=== PATIENT | female | born 1990 ===

== ENCOUNTER 2020-11-29 15:53 | Inpatient (IN) ==
[2020-11-29] MEDS ORDERED: ONDANSETRON 4 MG/2 ML VIAL IV PRN (16:41)
[2020-11-29] MEDS ORDERED: MEPERIDINE 50 MG/1 ML VIAL IV PRN (16:41)
[2020-11-29] MEDS ORDERED: BUTORPHANOL 2 MG/ML VIAL IV PRN (16:41)
[2020-11-29] MEDS ORDERED: FAMOTIDINE 20 MG/2 ML VIAL IV SCH (17:00)
[2020-11-29] MEDS ORDERED: OXYTOCIN/LR 20 UNIT/1,000 ML BAG IV SCH (17:00)
[2020-11-29] MEDS ORDERED: LACTATED RINGERS 1,000 ML IV SCH ×2 (17:00→18:30)
[2020-11-29 17:01] LABS: Basophils % 0.3 % (0.0-0.8); Eosinophils % 0.6 % (0.00-10.9); Hematocrit 34.2 VOL% (35.7-47.0); Hemoglobin 10.5 GM/DL (12.0-16.0); Immature Granulocytes % 1.4 %; Lymphocytes # 1.6 10*3/uL (1.4-4.0); Lymphocytes % 21.9 % (21.3-54.2); Mean Corpuscular HGB Conc 30.7 GM/DL (32-36); Mean Platelet Volume 8.8 FL (9.6-12.0); Monocytes % 6.6 % (1.7-12.7); NRBC # 0.02 10*3/uL; Neutrophils % 69.2 % (38.7-73.9); Platelet Count 389 T/CUMM (130-400); Red Blood Count 4.22 MC/CUMM (3.8-5.5); Red Cell Distribution Width 17.1 % (9.3-17.3); White Blood Count 7.2 T/CUMM (4-12)
[2020-11-29] MEDS ORDERED: CITRIC ACID/SODIUM CITRATE 30 ML UDCUP ONE (18:01)
[2020-11-29] MEDS ORDERED: CITRIC ACID/SODIUM CITRATE 30 ML UDCUP PO ONE (18:02)
[2020-11-29] MEDS ORDERED: LACTATED RINGERS 1,000 ML IV ONE (18:02)
[2020-11-29] MEDS ORDERED: ePHEDrine 50 MG/ML VIAL IV PRN (18:02)
[2020-11-29] MEDS ORDERED: NALOXONE 0.4 MG/ML VIAL IV PRN (18:03)
[2020-11-29] MEDS ORDERED: diphenhydrAMINE 50 MG/1 ML VIAL IV PRN ×2 (18:03)
[2020-11-29] MEDS ORDERED: hydrOXYzine HCL 25 MG/1 ML VIAL IM PRN (18:03)
[2020-11-29] MEDS ORDERED: PROMETHAZINE 25 MG/1 ML VIAL IM ONE (18:03)
[2020-11-29] MEDS ORDERED: fentaNYL 2 MCG/ROPIV 0.2% EPID 100 ML EPIDURAL SCH (18:30)
[2020-11-29 19:47] LABS: Bilirubin,Urine Negative (Negative); Blood, Urine Negative (Negative); Glucose,Urine (UA) Negative (Negative); Ketones,Urine Negative (Negative); Mucus,Urine Occasional /LPF (Occasional); Nitrite,Urine Negative (Negative); Protein,Urine Negative; RBC,Urine <1 /HPF (0-4); Squamous Epithelial Cell,Urine Occasional /HPF (0-10); Urine Appearance CLEAR (Clear); Urine Color Yellow (Yellow); Urine Specific Gravity 1.023 (1.001-1.035)
[2020-11-30] MEDS ORDERED: miSOPROStoL 200 MCG TABLET ONE (00:10)
[2020-11-30] MEDS ORDERED: METHYLERGONOVINE 0.2 MG/1 ML AMP ONE (00:10)
[2020-11-30] MEDS ORDERED: CARBOPROST TROMETHAMINE 250 MCG/ML AMP IM ONE (00:10)
[2020-11-30] MEDS ORDERED: TRANEXAMIC ACID 1,000 MG/10 ML VIAL ONE (00:10)
[2020-11-30] MEDS ORDERED: LIDOCAINE 1% 50 ML VIAL ONE (00:11)
[2020-11-30] MEDS ORDERED: SODIUM CHLORIDE 0.9% 0 ML IV ONE (00:11)
[2020-11-30] MEDS ORDERED: ePHEDrine 50 MG/ML VIAL IV ONE (01:36)
[2020-11-30 01:47] LABS: Cord Venous Blood HCO3 20.5 MMOL/L; Cord Venous Blood PCO2 41.5 MMHG; Cord Venous Blood PO2 27.6
[2020-11-30 01:54] LABS: Hematocrit 29.8 VOL% (35.7-47.0); Hemoglobin 9.1 GM/DL (12.0-16.0)
[2020-11-30] MEDS ORDERED: SODIUM CHLORIDE 0.9% 1,000 ML IV ONE (03:39)
[2020-11-30] MEDS ORDERED: BISACODYL 10 MG SUPP RECTAL PRN (04:39)
[2020-11-30] MEDS ORDERED: DIPH/TET/ACEL PERT BOOSTER VACCINE 0.5 ML VIAL IM ONE (04:39)
[2020-11-30] MEDS ORDERED: BENZOCAINE 20%/MENTHOL 0.5% SPRAY 56 GM CAN TOP PRN (04:39)
[2020-11-30] MEDS ORDERED: HYDROCORTISONE 2.5% RECTAL CREAM 30 GM TUBE TOP PRN (04:39)
[2020-11-30] MEDS ORDERED: ACETAMINOPHEN 325 MG TABLET PO PRN (04:39)
[2020-11-30] MEDS ORDERED: LANOLIN 50% CREAM 0.3 OZ TUBE TOP PRN (04:39)
[2020-11-30] MEDS ORDERED: RHO(D) IMMUNE GLOBULIN 300 MCG SYRINGE IM ONE (04:39)
[2020-11-30] MEDS ORDERED: OXYTOCIN/LR 20 UNIT/1,000 ML BAG IV ONE (04:39)
[2020-11-30] MEDS ORDERED: oxyCODONE/ACETAMINOPHEN 5-325 MG TABLET PO PRN (04:39)
[2020-11-30] MEDS ORDERED: WITCH HAZEL PADS 100/JAR TOP PRN (04:39)
[2020-11-30] MEDS ORDERED: MEASLES/MUMPS/RUBELLA VACCINE 0.5 ML VIAL SUBCUT ONE (04:39)
[2020-11-30] MEDS: oxyCODONE/ACETAMINOPHEN 5-325 MG TABLET PO PRN ×3 (04:44→15:51)
[2020-11-30] MEDS: IBUPROFEN 800 MG TABLET PO PRN ×2 (04:46→20:47)
[2020-11-30] MEDS: BUTALBITAL/ACETAMIN/CAFFEINE 50-325-40 MG TABLET PO SCH ×3 (06:08→22:27)
[2020-11-30 07:49] LABS: Basophils % 0.1 % (0.0-0.8); Hematocrit 27.4 VOL% (35.7-47.0); Hemoglobin 8.6 GM/DL (12.0-16.0); Immature Granulocytes % 0.5 %; Immature Granulocytes Absolute 0.08 #; Lymphocytes # 1.2 10*3/uL (1.4-4.0); Lymphocytes % 7.8 % (21.3-54.2); Mean Corpuscular HGB Conc 31.4 GM/DL (32-36); Mean Corpuscular Volume 84.6 FL (87-102); Mean Platelet Volume 9.3 FL (9.6-12.0); Neutrophils % 85.6 % (38.7-73.9); Platelet Count 265 T/CUMM (130-400); Red Blood Count 3.24 MC/CUMM (3.8-5.5); Red Cell Distribution Width 17.2 % (9.3-17.3); White Blood Count 15.9 T/CUMM (4-12)
[2020-11-30] MEDS ORDERED: FUROSEMIDE 40 MG/4 ML VIAL IV ONE (09:11)
[2020-11-30] MEDS: FERROUS SULFATE 325 MG TABLET PO SCH ×2 (09:50→20:47)
[2020-11-30] MEDS: DOCUSATE SODIUM 100 MG CAPSULE PO SCH ×2 (09:50→20:47)
[2020-11-30] MEDS ORDERED: ONDANSETRON 4 MG/2 ML VIAL IV PRN (12:03)
[2020-12-01] MEDS: IBUPROFEN 800 MG TABLET PO PRN ×2 (06:59→16:33)
[2020-12-01] MEDS: FERROUS SULFATE 325 MG TABLET PO SCH ×2 (08:30→21:20)
[2020-12-01] MEDS: DOCUSATE SODIUM 100 MG CAPSULE PO SCH ×2 (08:30→21:20)
[2020-12-01] MEDS: oxyCODONE/ACETAMINOPHEN 5-325 MG TABLET PO PRN ×3 (08:31→20:25)
[2020-12-01 17:06] LABS: Hemoglobin 7.7 GM/DL (12.0-16.0)
[2020-12-02] MEDS: IBUPROFEN 800 MG TABLET PO PRN ×3 (00:02→20:50)
[2020-12-02 06:29] LABS: Hematocrit 29.3 VOL% (35.7-47.0)
[2020-12-02 06:31] LABS: Hemoglobin 9.4 GM/DL (12.0-16.0)
[2020-12-02] MEDS: oxyCODONE/ACETAMINOPHEN 5-325 MG TABLET PO PRN (07:49)
[2020-12-02] MEDS: DOCUSATE SODIUM 100 MG CAPSULE PO SCH ×2 (07:50→20:49)
[2020-12-02] MEDS: FERROUS SULFATE 325 MG TABLET PO SCH ×2 (07:51→20:49)
[2020-12-03] MEDS: IBUPROFEN 800 MG TABLET PO PRN (03:22)
[2020-12-03 16:16] VITALS: BP 110/80
== END 2020-12-03 15:55 | disposition home or self-care (01) | DRG 560 ==
LOC: N.LDOUT 15:53 → N.LD 15:55 → N.OB 11-30 10:54
PROVIDERS: ADMIT Obstetrics & Gynecology; ATTEND Obstetrics & Gynecology